=== PATIENT | female | born 1975 | race Caucasian/White ===

== ENCOUNTER 2017-10-22 10:39 | Emergency (ER) | payer OTHER ==
[2017-10-22 10:55] VITALS: RESP 18; TEMP 98.3
[2017-10-22] MEDS ORDERED: Albuterol-Ipratrop 3 mg / 0.5 (3 ml) UD INH STA (11:53)
[2017-10-22] MEDS ORDERED: Albuterol-Ipratrop 3 mg / 0.5 (3 ml) UD ONE (12:04)
--- NOTE | 2017-10-22 12:29 | C.PDOC ---
History Of Present Illness 42 y/o female w/PMHx of asthma presents to the ER complaining of nasal congestion , runny nose, and dry cough which has been present for the past 3 days. Patient states that she was not able to sleep last night because of dry cough and chest tightness. Patient reports that she is using Albuterol inhaler which provided no relief. Otherwise, pt denies high fever, chills, headache, dizziness, drooling, neck pain, CP, SOB, palpitation, abd. pain, V/D, back pain , UTI sx. Ambulate to Ed for evaluation, not in nay apparent distress. Time Seen by Provider: 10/22/17 11:33 Chief Complaint (Nursing): Cough, Cold, Congestion History Per: Patient History/Exam Limitations: no limitations Onset/Duration Of Symptoms: Days Current Symptoms Are (Timing): Still Present Severity: Moderate Past Medical History Reviewed: Historical Data, Nursing Documentation, Vital Signs Vital Signs: Last Vital Signs Temp 98.3 F 10/22/17 10:52 Pulse 82 10/22/17 10:52 Resp 18 10/22/17 10:52 BP 115/80 10/22/17 10:52 Pulse Ox 98 10/22/17 13:11 - Medical History PMH: Asthma Surgical History: No Surg Hx Family History: States: No Known Family Hx - Social History Hx Tobacco Use: No Hx Alcohol Use: No Hx Substance Use: No - Immunization History Hx Tetanus Toxoid Vaccination: No Hx Influenza Vaccination: No Hx Pneumococcal Vaccination: No Review Of Systems Except As Marked, All Systems Reviewed And Found Negative. Constitutional: Negative for: Fever, Chills ENT: Positive for: Nose Discharge (runny nose), Nose Congestion Respiratory: Positive for: Cough (dry cough) Gastrointestinal: Negative for: Nausea, Vomiting, Abdominal Pain, Diarrhea Genitourinary: Negative for: Dysuria Musculoskeletal: Negative for: Neck Pain, Back Pain Skin: Negative for: Rash Neurological: Negative for: Altered Mental Status, Headache, Dizziness Physical Exam - Physical Exam Appears: Well, Non-toxic, No Acute Distress Skin: Normal Color, Warm, No Rash Head: Normacephalic Eye(s): bilateral: PERRL Ear(s): Bilateral: Normal Nose: No Flaring, Discharge (B/L nasal congestion with clear rhinorrhea) Oral Mucosa: Moist, No Drooling Tongue: Normal Appearing Lips: Normal Appearing Throat: No Erythema, No Exudate, No Drooling Neck: Trachea Midline, Supple Chest: Symmetrical Cardiovascular: Rhythm Regular Respiratory: No Decreased Breath Sounds, No Accessory Muscle Use, No Rales, No Rhonchi, No Stridor, Wheezing (bibasilar scattered expiratory wheezing) Gastrointestinal/Abdominal: Soft, No Tenderness, No Distention, No Guarding Back: No CVA Tenderness Extremity: Normal ROM, No Pedal Edema, No Swelling Neurological/Psych: Oriented x3, Normal Speech ED Course And Treatment O2 Sat by Pulse Oximetry: 98 (RA) Pulse Ox Interpretation: Normal - Radiology CXR: Interpreted by Me, Viewed By Me CXR Interpretation: Yes: No Acute Disease Progress Note: CXR ordered.Patient given Benzonatate PO and Prednisone PO. Patient also given Albuterol and Nebulizer treatments. On re-evaluation, pt is afebrile, hemodynamicaly stable. non-toxic. PUlseOx 98% RA. ENT: no acute findings. neck: Supple, (-) meningeal sign. Lungs: CTA B/L, BS equal B/L. Abd : soft, (-) guarding, (-) rebound. back: (-) CVA tenderness. CXR review and appears normal. Pt has clinical findings c/w URI, asthma exacerbation. Pt advised. ref. to f/u with PMD in 2-3 days for re-eval. return to ED if anyw orsening or new changes. Disposition Counseled Patient/Family Regarding: Studies Performed, Diagnosis, Need For Followup, Rx Given - Disposition Referrals: [facility] [Outside] Disposition: HOME/ ROUTINE Disposition Time: 12:30 Condition: STABLE Additional Instructions: ENCOURAGE FLUIDS TAKE MEDICATION PRESCRIBED FOLLOW UP WITH PMD IN 2-3 DAYS FOR RE-EVALUATION. RETURN TO ED IF ANY WORSENING OR NEW CHANGES. Prescriptions: Albuterol HFA [Ventolin HFA 90 mcg/actuation (8 g)] 1 puff IH Q6 #1 inhaler Benzonatate [Tessalon Perle] 100 mg PO TID #14 capsule Prednisone [Deltasone] 40 mg PO DAILY #6 tablet Instructions: Asthma in Adults, Upper Respiratory Infection (ED) Forms: [facility] (Slovak), Work Excuse - Clinical Impression Clinical Impression: Upper respiratory infection, Asthma - PA / [employer] SCI[employer]IST / Resident Statement MD/DO has reviewed & agrees with the documentation as recorded. - Scribe Statement The provider has reviewed the documentation as recorded by the Shayanibgenet Pool Provider Attestation All medical record entries made by the Shayanibgenet were at my direction and personally dictated by me. I have reviewed the chart and agree that the record accurately reflects my personal performance of the history, physical exam, medical decision making, and the department course for this patient. I have also personally directed, reviewed, and agree with the discharge instructions and disposition.
--- NOTE | 2017-10-22 12:34 | RAD ---
HISTORY: Cough COMPARISON: No prior. TECHNIQUE: Chest PA and lateral FINDINGS: LUNGS: No active pulmonary disease. PLEURA: No significant pleural effusion identified. No pneumothorax apparent. CARDIOVASCULAR: Normal. OSSEOUS STRUCTURES: No significant abnormalities. VISUALIZED UPPER ABDOMEN: Normal. OTHER FINDINGS: None. IMPRESSION: No active disease.
[2017-10-22 13:28] VITALS: BP 113/78; PULSE 71; O2SAT 97
== END 2017-10-22 13:40 | disposition home or self-care (01) ==
LOC: C.ER 10:39
DX: J06.9 Acute upper respiratory infection, unspecified (principal); J45.909 Unspecified asthma, uncomplicated